=== PATIENT | male | born 1985 | race Caucasian/White ===

== ENCOUNTER 2016-04-20 14:26 | Emergency (ER) | payer MEDICAID, OTHER ==
[~2016-04-20] VITALS: Ht 170.2 cm; Wt 85.0 kg
[~2016-04-20 14:26] MED LIST: CEPH500C3 PO; PERC5TAB12 PO
[2016-04-20 14:37] VITALS: BP 109/84; PULSE 96; RESP 16; TEMP 99.2; O2SAT 97
--- NOTE | 2016-04-20 14:46 | PD ---
HPI Chief Complaint: Cold / Flu Symptoms Time Seen by Provider: 14:46 Travel History International Travel<30 days: No Contact w/Intl Traveler<30days: No Traveled to known affect area: No History of Present Illness HPI 31-year-old male presents the emergency department with five-day history of fever, chills, body aches, and cough which has been worsening over the past several days. Patient has had fevers in the low 100s. Patient has productive cough, and shortness of breath and wheezing. Patient has back pain which he contributes to a previous L1 compression fracture which has been aggravated from his coughing. He has had decreased appetite but no nausea or vomiting or diarrhea. Patient is a smoker across her back today. His whole family is sick. This is the first visit he is made for his illness. He is allergic to Biaxin and penicillin. [facility] Social History Alcohol Use: No Tobacco Use: Yes (1 ppd) Substance Use: No Allergies-Medications (Allergen,Severity, Reaction): Coded Allergies: Penicillin (Verified Allergy, Intermediate, HIVES, 04/20/16) Biaxin (Verified Adverse Reaction, Intermediate, DIARRHEA, HAIR LOSS, 04/20) Reported Meds & Prescriptions Reported Meds & Active Scripts Active No Active Prescriptions or Reported Medications Review of Systems Except as stated in HPI: all other systems reviewed are Neg General / Constitutional: Positive: Fever, Chills Eyes: No: Visual changes HENT: Positive: Headaches, Rhinitis, Rhinorrhea, Congestion, No: Sore Throat, Nosebleed, Neck Stiffness, Neck Pain, Ear Discharge, Earache Cardiovascular: No: Chest Pain or Discomfort Respiratory: Positive: Cough, Shortness of Breath, Wheezing, No: Sneezing, Orthopnea, Hemoptysis, Pleuritic Pain Gastrointestinal: Positive: Loss of Appetite, No: Nausea, Vomiting, Diarrhea, Abdominal Pain Genitourinary: No: Dysuria Musculoskeletal: Positive: Pain (back pain. See history of present illness) Skin: No Rash Neurologic: No: Weakness Psychiatric: No: Depression Endocrine: No: Polydipsia Hematologic/Lymphatic: No: Easy Bruising Physical Exam Narrative GENERAL: Patient appears ill but not septic. No acute distress. SKIN: Warm and dry. Mild pallor. Normal turgor. No rash. HEAD: Atraumatic. Normocephalic. EYES: Pupils equal and round. No scleral icterus. No injection or drainage. ENT: No nasal bleeding or discharge. Mucous membranes pink and moist. TMs are clear bilaterally. No sinus tenderness. Pharynx is irritated but otherwise unremarkable. NECK: Trachea midline. Supple and nontender. CARDIOVASCULAR: Regular rate and rhythm. RESPIRATORY: No accessory muscle use. Diffuse expiratory wheezes with cough to auscultation. Question rhonchi in the bases. Breath sounds equal bilaterally. GASTROINTESTINAL: Abdomen soft, non-tender, nondistended. Hepatic and splenic margins not palpable. MUSCULOSKELETAL: Extremities without clubbing, cyanosis, or edema. No obvious deformities. Patient has tenderness at the L1 low bilaterally in the paraspinous region. No other significant findings noted. NEUROLOGICAL: Awake and alert. No obvious cranial nerve deficits. Motor grossly within normal limits. Five out of 5 muscle strength in the arms and legs. Normal speech. PSYCHIATRIC: Appropriate mood and affect; insight and judgment normal. Data Data Last Documented VS Vital Signs Date Time Temp Pulse Resp B/P Pulse Ox O2 Delivery O2 Flow Rate FiO2 04/20/16 14:56 97 Room Air 04/20/16 14:37 99.2 96 16 109/84 Orders Ketorolac Inj (Toradol Inj) (04/20/16 15:00) Chest, Pa & Lat (04/20/16 14:53) Prednisone (Deltasone) (04/20/16 15:00) Albuterol-Ipratropium Neb (Duoneb Neb) (04/20/16 15:00) [facility] [place] Medical Decision Making Medical Screen Exam Complete: Yes Emergency Medical Condition: Yes Differential Diagnosis Influenza. Cough. Febrile illness. Pneumonia. Bronchitis. Narrative Course Patient is medically stable at time of exam. Patient is given Toradol 60 mg IM Patient is given 60 mg prednisone by mouth. Chest x-ray PA and lateral is ordered. DuoNeb is ordered 1. Chest x-ray showed no acute process. Calcified pulmonary nodule is noted and unchanged from previous. Patient is aware. Patient is treated with azithromycin Dosepak as prescribed. Patient is given Robitussin-AC 2 teaspoons every 4-6 hours when necessary 120 amount. Patient is given albuterol metered-dose inhaler 2 puffs every 4-6 hours when necessary wheeze. Patient is given prednisone 20 mg twice a day for 5 days. Patient is instructed to quit smoking as soon as possible. Patient follow-up as symptoms warrant. Diagnosis Primary Impression: Acute wheezy bronchitis Patient Instructions: Acute Bronchitis (DC), Cigarette Smoking and Your Health (GEN), General Instructions, How to Use a Metered-Dose Inhaler (ED) Additional Instructions: Chest x-ray showed no acute process. Calcified pulmonary nodule is noted and unchanged from previous. Patient is aware. Patient is treated with azithromycin Dosepak as prescribed. Patient is given Robitussin-AC 2 teaspoons every 4-6 hours when necessary 120 amount. Patient is given albuterol metered-dose inhaler 2 puffs every 4-6 hours when necessary wheeze. Patient is given prednisone 20 mg twice a day for 5 days. Patient is instructed to quit smoking as soon as possible. Patient follow-up as symptoms warrant. Med/Other Pt SpecificInfo: Prescription(s) given Scripts Albuterol 18 GM Inh (Ventolin Hfa 18 GM Inh)90 Mcg/Act Aer2 Puff INH Q4-6H PRN ( SHORTNESS OF BREATH) #1 INHALER Prov:Hector Benites MD 04/20/16 Prednisone 20 Mg Tab20 Mg PO BID #10 TAB Prov:Hector Benites MD 04/20/16 Guaifenesin-Codeine (Codeine/Guaifenesin 100-10 mg/5Ml)1 Nilam Sol10 Ml PO Q4-6H #120 ML Prov:Hector Benites MD 04/20/16 Azithromycin 250 Mg [id number] Mg PO DIRECTED #6 TAB Take 2 tabs (500 mg) on day 1 then 1 tab daily x 4 days. Prov:Hector Benites MD 04/20/16 Disposition: 01 DISCHARGE HOME Condition: Stable Sage Montalvo Apr 20, 2016 14:46
[2016-04-20] MEDS ORDERED: RESP: ALBUTEROL 2.5 MG/IPRATROPIUM 0.5 MG NEB (SCH) NEB ONE (15:00)
[2016-04-20] MEDS ORDERED: KETOROLAC TROMETHAMINE 60 MG/2 ML (IM) VIAL IM ONE (15:00)
[2016-04-20] MEDS ORDERED: predniSONE 20 MG TAB PO ONE (15:00)
--- NOTE | 2016-04-20 15:14 | RADHPO ---
EXAM DATE/TIME: 04/20/2016 14:59 [facility] COMPARISON: No previous studies available for comparison. INDICATIONS : Cough. Cold and flu symptoms for four days. Fever. MEDICAL HISTORY : None. SURGICAL HISTORY : None. ENCOUNTER: Initial ACUITY: 4 - 6 days PAIN SCORE: 9/10 LOCATION: Bilateral chest FINDINGS: PA and lateral views of the chest demonstrate the lungs to be symmetrically aerated without evidence of mass, infiltrate or effusion. The cardiomediastinal contours are unremarkable. Osseous structure s are intact. CONCLUSION: Normal examination. Calcified granuloma right lower lobe Deepak Luong MD on April 20, 2016 at 15:12 Board Certified Radiologist. This report was verified electronically.
[2016-04-20] MEDS ORDERED: GUAI1SOL3 PO (15:34)
[2016-04-20] MEDS ORDERED: PRED20 PO (15:34)
[2016-04-20] MEDS ORDERED: AZIT250T3 PO (15:34)
[2016-04-20] MEDS ORDERED: VENTAER INH (15:34)
== END 2016-04-20 15:45 | disposition home or self-care (01) ==
LOC: PHEFT 14:26
DX: J40 Bronchitis, not specified as acute or chronic (principal); F17.210 Nicotine dependence, cigarettes, uncomplicated
CPT/HCPCS: 71020; 94664; 96372; 99284; J1885; J7512